=== PATIENT | male | born 1955 | race Caucasian/White ===

== ENCOUNTER 2017-08-17 13:58 | Emergency (ER) | payer BC ==
[~2017-08-17] VITALS: Ht 177.8 cm; Wt 70.3 kg
[~2017-08-17 13:58] MED LIST: ACAM333T6 PO; AMLO-543 PO; BACL-1 PO; BENA20TA62 PO; BUTA1CAP6 PO; CLIN-75 PO; CYC10 PO; CYCL-332 PO; CYCL10TA29 PO; DIAZ-308 PO; DICL1TAB PO; DOCU-416 PO; HYDR-2966 PO; HYDR-318 PO; HYDR12.558 PO; IBU600 PO; IBUP1TAB90 PO; LIS10 PO; LOR5/325 PO; LORA-733 PO; MECL12.5 PO; MECL25TA27 PO; MULT-772 PO; NALT50TA15 PO; NAPR1TAB6 PO; NAPR550T20 PO; ONDA4TAB PO; OXYC-373 PO; OXYC-717 PO; PAN40 PO; PENT1TAB PO; PHEN200T32 PO; PREG50CA48 PO; PROM-110 PO; PROP60CA22 PO; TADA20TA33 PO; THIA100T55 PO; TRAZ-156 PO; [UNRECOGNIZED DRUG - CODE] PO; [UNRECOGNIZED DRUG - OTHER]
[2017-08-17] MEDS ORDERED: THIAMINE HCL(*) 200 MG/2 ML IN 100 MG, FOLIC ACID(*) 50 MG/10 ML INJ 1 MG, MULTIVITAMIN... IV ONE (14:19)
--- NOTE | 2017-08-17 14:25 | ER Report ---
History and Physical Time Seen By MD: 14:05 Hx. of Stated Complaint: PATIENT REPORTS THAT HE IS HERE TO DETOX FROM ALCOHOL. PATIENTS SON REPORTS THAT HE WAS SOBER FOR 9 YEARS BUT STARTED DRINKING AROUND A YEAR AGO. HPI/ROS CHIEF COMPLAINT: Alcohol intoxication, wanting detox HISTORY OF PRESENT ILLNESS: Patient is a 62-year-old male accompanied by his son , who presents to ED with complaint of alcohol intoxication wanting detox. He states that he has been drinking daily for the past year. He states that he has been drinking about a gallon of whiskey a day. He states he has had 4 drinks of gin today with his last drink pain about 15 minutes ago. He states that prior to this one year of drinking he was sober for 9 years. Patient states that he did see his psychiatrist today and they advised him to come to the emergency room for detoxification. He states that he does want to stop drinking alcohol. His son is in support of this decision and is brought to the emergency room today. REVIEW OF SYSTEMS: Constitutional: No fever, no chills. Eyes: No discharge. ENT: No sore throat. Cardiovascular: No chest pain, no palpitations. Respiratory: No cough, no shortness of breath. Gastrointestinal: No abdominal pain, no vomiting. Genitourinary: No hematuria. Musculoskeletal: No back pain. Skin: No rashes. Neurological: No headache. Allergies: Coded Allergies: Penicillins (Verified Allergy, Severe, ANAPHYLAXIS, 10/24/15) Home Meds Active Scripts Amlodipine Bes/Olmesartan Med (LOU 5-20 MG TABLET) 1 Each Tablet, 1 EACH PO DAILY, #90 TAB Prov:LEO GOTTLIEB MD 06/17/17 Reported Medications Pantoprazole Sod (Protonix) 40 Mg Tabec, 40 MG PO DAILY 10/06/11 Discontinued Reported Medications Naproxen Sodium (NAPROXEN SODIUM) 550 Mg Tablet, 1 MG PO TID, TAB 10/02/16 Discontinued Scripts Tadalafil (CIALIS) 20 Mg Tablet, 20 MG PO QDAY, #6 TAB Prov:MAREK CHOUDHURY MD 04/09/17 Meclizine Hcl (MECLIZINE HCL) 25 Mg Tab.chew, 25 MG PO BID Y for vertigo, #30 TAB.CHEW 1 Refill Prov:LEO GOTTLIEB MD 10/02/16 Trazodone Hcl (TRAZODONE HCL) 50 Mg Tablet, 0.5-1 MG PO QHS Y for insomnia, #30 TAB 1 Refill Prov:LEO GOTTLIEB MD 10/02/16 Reviewed Nurses Notes: Yes Old Medical Records Reviewed: Yes Hx Smoking: Yes (1 PPD SINCE 1959) Smoking Status: Former Smoker, Heavy Tobacco Smoker Hx Substance Use Disorder: Yes (alcoholism, former cocaine use) Hx Alcohol Use: Yes Constitutional Vital Sign - Last 24 Hours 08/17/17 08/17/17 08/17/17 08/17/17 14:01 14:03 14:22 14:28 Temp 97.9 Pulse 84 84 Resp 20 B/P (MAP) 202/125 (150) 202/125 190/119 (142) Pulse Ox 93 91 O2 Delivery Room Air 08/17/17 08/17/17 08/17/17 08/17/17 14:30 14:40 14:43 14:50 Pulse 84 Resp 37 B/P (MAP) 163/119 (134) 175/108 (130) 167/91 (116) Pulse Ox 88 08/17/17 08/17/17 08/17/17 08/17/17 14:58 15:00 15:10 15:13 Pulse 80 82 Resp 31 42 B/P (MAP) 145/97 (113) 145/104 (118) 08/17/17 15:20 B/P (MAP) 139/92 (108) Physical Exam General Appearance: The patient is alert, has no immediate need for airway protection and no signs of toxicity. Patient appears to be in no acute distress. Eyes: Pupils equal and round no pallor or injection. ENT, Mouth: Mucous membranes are moist. Respiratory: There are no retractions, lungs are clear to auscultation. Cardiovascular: Regular rate and rhythm. Gastrointestinal: Abdomen is soft and non tender, no masses, bowel sounds normal. Neurological: Cranial nerves II through XII intact. Skin: Warm and dry, no rashes. Musculoskeletal: Neck is supple non tender. Extremities are nontender, nonswollen and have full range of motion. Medical Decision Making Data Points Result Diagram: 08/17/17 1430 08/17/17 1430 Laboratory Hematology Test 08/17/17 14:30 08/17/17 14:50 Red Blood Count 4.80 M/uL (4.00-5.60) Mean Corpuscular Volume 103.0 fL (80.0-96.0) Mean Corpuscular Hemoglobin 35.9 pg (26.0-33.0) Mean Corpuscular Hemoglobin Concent 34.9 g/dL (32.0-36.0) Red Cell Distribution Width 15.3 % (11.5-14.5) Mean Platelet Volume 7.8 fL (7.2-11.1) Neutrophils (%) (Auto) 60.2 % (39.4-72.5) Lymphocytes (%) (Auto) 29.6 % (17.6-49.6) Monocytes (%) (Auto) 8.9 % (4.1-12.4) Eosinophils (%) (Auto) 0.6 % (0.4-6.7) Basophils (%) (Auto) 0.7 % (0.3-1.4) Nucleated RBC Relative Count (auto) 0.1 /100WBC Neutrophils # (Auto) 3.8 K/uL (2.0-7.4) Lymphocytes # (Auto) 1.9 K/uL (1.3-3.6) Monocytes # (Auto) 0.6 K/uL (0.3-1.0) Eosinophils # (Auto) 0.0 K/uL (0.0-0.5) Basophils # (Auto) 0.0 K/uL (0.0-0.1) Nucleated RBC Absolute Count (auto) 0.01 K/uL Peripheral Blood Smear No Y/N Sodium Level 143 mmol/L (137-145) Potassium Level 3.4 mmol/L (3.5-5.0) Chloride Level 102 mmol/L (98-107) Carbon Dioxide Level 24 mmol/L (22-30) Blood Urea Nitrogen 7 mg/dl (9-21) Creatinine 0.80 mg/dl (0.66-1.25) Glomerular Filtration Rate Calc > 60.0 Random Glucose 111 mg/dl (75-110) Calcium Level 9.1 mg/dl (8.4-10.2) Magnesium Level 2.0 mg/dl (1.7-2.2) Total Bilirubin 0.7 mg/dl (0.2-1.3) Aspartate Amino Transf (AST/SGOT) 116 U/L (0-35) Alanine Aminotransferase (ALT/SGPT) 96 U/L (0-56) Alkaline Phosphatase 257 U/L (0-126) Total Protein 7.8 gm/dl (6.3-8.2) Albumin 4.3 g/dl (3.5-5.0) Salicylates Level < 10 mg/L Salicylate Last Dose Date unknown Acetaminophen Level < 10 ug/ml Serum Alcohol 349 mg/dl Urine Color Straw Urine Clarity Clear Urine pH 6.0 pH (4.8-9.5) Urine Specific [place] 1.003 Urine Protein Negative mg/dL (NEGATIVE) Urine Glucose (UA) Negative mg/dL (NEGATIVE) Urine Ketones Negative mg/dL (NEGATIVE) Urine Blood Small (NEGATIVE) Urine Nitrite Negative (NEGATIVE) Urine Bilirubin Negative (NEGATIVE) Urine Urobilinogen Negative mg/dL (0.2-1.9) Urine Leukocyte Esterase Negative (NEGATIVE) Urine RBC None /HPF (0-2/HPF) Urine WBC <1 /HPF (0-5/HPF) Urine Squamous Epithelial Cells None /LPF (</=FEW) Urine Bacteria Negative /HPF (NONE-FEW) Urine Mucus None /HPF (NONE-FEW) Urine Opiates Screen Negative Urine Barbiturates Screen Negative Ur Tricyclic Antidepressants Screen Negative Urine Phencyclidine Screen Negative Urine Amphetamines Screen Negative Urine Benzodiazepines Screen Negative Urine Cocaine Screen Negative Urine Cannabinoids Screen Positive Chemistry Test 08/17/17 14:30 08/17/17 14:50 White Blood Count 6.4 k/uL (4.5-11.0) Red Blood Count 4.80 M/uL (4.00-5.60) Hemoglobin 17.3 g/dL (14.0-18.0) Hematocrit 49.4 % (42.0-52.0) Mean Corpuscular Volume 103.0 fL (80.0-96.0) Mean Corpuscular Hemoglobin 35.9 pg (26.0-33.0) Mean Corpuscular Hemoglobin Concent 34.9 g/dL (32.0-36.0) Red Cell Distribution Width 15.3 % (11.5-14.5) Platelet Count 230 K/uL (150-450) Mean Platelet Volume 7.8 fL (7.2-11.1) Neutrophils (%) (Auto) 60.2 % (39.4-72.5) Lymphocytes (%) (Auto) 29.6 % (17.6-49.6) Monocytes (%) (Auto) 8.9 % (4.1-12.4) Eosinophils (%) (Auto) 0.6 % (0.4-6.7) Basophils (%) (Auto) 0.7 % (0.3-1.4) Nucleated RBC Relative Count (auto) 0.1 /100WBC Neutrophils # (Auto) 3.8 K/uL (2.0-7.4) Lymphocytes # (Auto) 1.9 K/uL (1.3-3.6) Monocytes # (Auto) 0.6 K/uL (0.3-1.0) Eosinophils # (Auto) 0.0 K/uL (0.0-0.5) Basophils # (Auto) 0.0 K/uL (0.0-0.1) Nucleated RBC Absolute Count (auto) 0.01 K/uL Peripheral Blood Smear No Y/N Glomerular Filtration Rate Calc > 60.0 Calcium Level 9.1 mg/dl (8.4-10.2) Magnesium Level 2.0 mg/dl (1.7-2.2) Total Bilirubin 0.7 mg/dl (0.2-1.3) Aspartate Amino Transf (AST/SGOT) 116 U/L (0-35) Alanine Aminotransferase (ALT/SGPT) 96 U/L (0-56) Alkaline Phosphatase 257 U/L (0-126) Total Protein 7.8 gm/dl (6.3-8.2) Albumin 4.3 g/dl (3.5-5.0) Salicylates Level < 10 mg/L Salicylate Last Dose Date unknown Acetaminophen Level < 10 ug/ml Serum Alcohol 349 mg/dl Urine Color Straw Urine Clarity Clear Urine pH 6.0 pH (4.8-9.5) Urine Specific [place] 1.003 Urine Protein Negative mg/dL (NEGATIVE) Urine Glucose (UA) Negative mg/dL (NEGATIVE) Urine Ketones Negative mg/dL (NEGATIVE) Urine Blood Small (NEGATIVE) Urine Nitrite Negative (NEGATIVE) Urine Bilirubin Negative (NEGATIVE) Urine Urobilinogen Negative mg/dL (0.2-1.9) Urine Leukocyte Esterase Negative (NEGATIVE) Urine RBC None /HPF (0-2/HPF) Urine WBC <1 /HPF (0-5/HPF) Urine Squamous Epithelial Cells None /LPF (</=FEW) Urine Bacteria Negative /HPF (NONE-FEW) Urine Mucus None /HPF (NONE-FEW) Urine Opiates Screen Negative Urine Barbiturates Screen Negative Ur Tricyclic Antidepressants Screen Negative Urine Phencyclidine Screen Negative Urine Amphetamines Screen Negative Urine Benzodiazepines Screen Negative Urine Cocaine Screen Negative Urine Cannabinoids Screen Positive Toxicology Test 08/17/17 14:30 08/17/17 14:50 Salicylates Level < 10 mg/L Salicylate Last Dose Date unknown Acetaminophen Level < 10 ug/ml Serum Alcohol 349 mg/dl Urine Opiates Screen Negative Urine Barbiturates Screen Negative Ur Tricyclic Antidepressants Screen Negative Urine Phencyclidine Screen Negative Urine Amphetamines Screen Negative Urine Benzodiazepines Screen Negative Urine Cocaine Screen Negative Urine Cannabinoids Screen Positive Urinalysis Test 08/17/17 14:50 Urine Color Straw Urine Clarity Clear Urine pH 6.0 pH (4.8-9.5) Urine Specific [place] 1.003 Urine Protein Negative mg/dL (NEGATIVE) Urine Glucose (UA) Negative mg/dL (NEGATIVE) Urine Ketones Negative mg/dL (NEGATIVE) Urine Blood Small (NEGATIVE) Urine Nitrite Negative (NEGATIVE) Urine Bilirubin Negative (NEGATIVE) Urine Urobilinogen Negative mg/dL (0.2-1.9) Urine Leukocyte Esterase Negative (NEGATIVE) Urine RBC None /HPF (0-2/HPF) Urine WBC <1 /HPF (0-5/HPF) Urine Squamous Epithelial Cells None /LPF (</=FEW) Urine Bacteria Negative /HPF (NONE-FEW) Urine Mucus None /HPF (NONE-FEW) EKG/Imaging EKG Interpretation 12 lead EKG: Rhythm: Sinus rhythm, rate 82 bpm Equality: normal QRS: normal ST segments: No acute ST changes identified. ED Course/Re-evaluation Clinical Indication for ER IV: Hydration ED Course Will obtain labs from patient. Will start him on 1 L banana bag. 08/17/2017 3:29:33 pm - Discussed all labs with patient. Discussed patient with Dr. Azul, psychiatry, who will accept patient under his care for alcohol detoxification. Decision to Disposition Date: Aug 17, 2017 Decision to Disposition Time: 15:30 Depart Departure Latest Vital Signs Vital Signs Date Time Temp Pulse Resp B/P (MAP) Pulse Ox O2 Delivery O2 Flow Rate FiO2 08/17/17 15:20 139/92 (108) 08/17/17 15:13 82 42 08/17/17 14:43 88 08/17/17 14:03 97.9 Room Air Impression: Primary Impression: Alcohol intoxication Condition: Improved Disposition: XFER TO [facility] Referrals: LEO GOTTLIEB MD (PCP) MD Consult Note: Dr. Azul, Psychiatry Problem Qualifiers Primary Impression: Alcohol intoxication Complication of substance-induced condition: uncomplicated Qualified Codes: F10.920 - Alcohol use, unspecified with intoxication, uncomplicated ALEXIS MACIEL PA-C Aug 17, 2017 14:25
[2017-08-17 14:40] LABS: PLATELET COUNT, AUTOMATED 230 K/uL (150-450)
[2017-08-17] MEDS ORDERED: NICOTINE 14 MG/24 HR PATCH TD SCH (14:45)
--- NOTE | 2017-08-17 14:47 | EKG ---
FACILITY: [facility] PATIENT NAME: DARREN BRAVO : [id number] MR: [id number] V: [id number] EXAM DATE: ORDERING PHYSICIAN: ALEXIS MACIEL TECHNOLOGIST: JUAN ANTONIO Fischer Reason : Blood Pressure : / mmHG Vent. Rate : 082 BPM Atrial Rate : 082 BPM P-R Int : 138 ms QRS Dur : 104 ms QT Int : 404 ms P-R-T Axes : 068 065 071 degrees QTc Int : 472 ms Normal sinus rhythm Normal ECG When compared with ECG of 26-OCT-2015 12:14, QT has lengthened Confirmed by SIVAN QUINTERO ([id number]) on 08/17/2017 3:52:49 PM Referred By: MALACHI Confirmed By:SIVAN QUINTERO
[2017-08-17 15:40] VITALS: BP 136/83
[2017-08-17] MEDS ORDERED: ACET-1966 PO (15:51)
== END 2017-08-17 16:06 ==
LOC: ER 14:07
DX: F10.920 Alcohol use, unspecified with intoxication, uncomplicated (principal); Z87.891 Personal history of nicotine dependence
CPT/HCPCS: 80305; 80320; 80329; 81001; 83735; 84443; 85025; 93005; 96365; 99285; J3411; J3475; J7030; 82040; 82247; 82310; 82374; 82435; 82565; 82947; 84075; 84132; 84155; 84295; 84450; 84460; 84520

== ENCOUNTER 2017-08-17 15:41 | Inpatient (IN) | payer BC ==
[~2017-08-17] VITALS: Ht 177.8 cm; Wt 81.6 kg
[2017-08-17] MEDS ORDERED: ACET-1966 PO (15:51)
[2017-08-17] MEDS ORDERED: MAG HYD/AL HYD/SIMETH 30ML UDC PO PRN (15:55)
[2017-08-17 16:46] VITALS: BP 164/94
--- NOTE | 2017-08-17 17:55 | RADIOLOGY IMAGING REPORT ---
FACILITY: [facility] PATIENT NAME: Jin Caldwell : 1955 MR: [id number] V: [id number] EXAM DATE: ORDERING PHYSICIAN: MARVA NICHOLS TECHNOLOGIST: Location: [facility] [place] Patient: Jin Caldwell : 1955 Visit/Account:[id number] Date of Sevice: 08/17/2017 Exam type: CHEST SINGLE AP History: ILLNESS,, shortness of breath Comparison: October 26 2015. Findings: The lungs are free of acute effusions, infiltrates or edema. The cardiac silhouette is normal in siz e. The trachea is in midline. IMPRESSION: 1. No acute cardiopulmonary process is seen Report Dictated By: Catrachita Coley MD at 08/17/2017 5:49 PM Report E-Signed By: Catrachita Coley MD at 08/17/2017 5:51 PM WSN:[id number]
[2017-08-17 18:21] VITALS: BP 152/82
[2017-08-17] MEDS: DIAZEPAM 10 MG TAB PO PRN ×4 (18:40→23:42)
[2017-08-17 23:35] VITALS: BP 160/100
[2017-08-18] MEDS: DIAZEPAM 10 MG TAB PO PRN ×7 (00:40→21:11)
[2017-08-18 05:00] VITALS: BP 158/98
[2017-08-18] MEDS ORDERED: LOPERAMIDE HCL 2 MG CAP PO PRN (06:35)
[2017-08-18] MEDS: FOLIC ACID 1 MG TAB PO SCH (08:13)
[2017-08-18] MEDS: MULTIVITAMINS TAB PO SCH (08:13)
[2017-08-18] MEDS: THIAMINE HCL 100 MG TAB PO SCH (08:13)
[2017-08-18 09:00] VITALS: BP 136/94
[2017-08-18] MEDS: NICOTINE 21 MG/24 HR PATCH TD SCH (10:32)
[2017-08-18 13:00] VITALS: BP 170/104
[2017-08-18 16:09] VITALS: BP 150/94
[2017-08-18 19:22] VITALS: BP 170/110
[2017-08-18 21:07] VITALS: BP_SYST 172
[2017-08-19 01:00] VITALS: BP 181/117
[2017-08-19] MEDS: DIAZEPAM 10 MG TAB PO PRN ×5 (01:04→07:45)
[2017-08-19 03:30] VITALS: BP 164/118
[2017-08-19 07:35] VITALS: BP 161/101
[2017-08-19] MEDS ORDERED: CYCL10TA29 PO (08:13)
[2017-08-19] MEDS: FOLIC ACID 1 MG TAB PO SCH (08:25)
[2017-08-19] MEDS: THIAMINE HCL 100 MG TAB PO SCH (08:26)
[2017-08-19] MEDS: PANTOPRAZOLE SOD 40 MG TABEC PO SCH (08:26)
[2017-08-19] MEDS: MULTIVITAMINS TAB PO SCH (08:26)
[2017-08-19] MEDS: NICOTINE 21 MG/24 HR PATCH TD SCH (08:27)
[2017-08-19 08:35] VITALS: BP 172/116
[2017-08-19] MEDS ORDERED: amLODIPine BESYL(*) 5 MG TAB PO SCH (09:00)
--- NOTE | 2017-08-19 11:55 | BHS Progress Note ---
[facility] - Subjective Progress Notes Subjective Patient's alcohol withdrawal nearing completion. Patient is upset with today as is indicating she does not want him at home anymore. Patient considered leaving against medical advice, but eventually deciding to stay until tomorrow afternoon, when alcohol withdrawal will likely be considered complete. Patient denies any other concerns. Will start antihypertensive, and start trazodone this PM. Suicidal Ideation: None Homicidal Ideation: None [facility] - Objective Physical Exam Vital Signs Vital Signs Date Time Temp Pulse Resp B/P (MAP) Pulse Ox O2 Delivery O2 Flow Rate FiO2 08/19/17 08:35 97.9 73 172/116 (134) 90 Room Air 08/19/17 08:35 16 08/19/17 03:30 2.0 Hematology Test 08/17/17 17:46 08/18/17 00:00 Serum Alcohol 248 mg/dl Group A Streptococcus Screen Negative (NEGATIVE) Rapid Plasma Reagin Nonreactive (NONREACTIVE) Hepatitis A IgM Antibody Negative (Negative) Hepatitis B Surface Antigen Negative (Negative) Hepatitis B Core IgM Antibody Negative (Negative) Hepatitis C Antibody 0.05 IV Hepatitis C Interpretation Negative (Negative) Hepatitis Interpretation See note HIV (1&2) Antibody Negative (NEGATIVE) Chemistry Test 08/17/17 17:46 08/18/17 00:00 Serum Alcohol 248 mg/dl Group A Streptococcus Screen Negative (NEGATIVE) Rapid Plasma Reagin Nonreactive (NONREACTIVE) Hepatitis A IgM Antibody Negative (Negative) Hepatitis B Surface Antigen Negative (Negative) Hepatitis B Core IgM Antibody Negative (Negative) Hepatitis C Antibody 0.05 IV Hepatitis C Interpretation Negative (Negative) Hepatitis Interpretation See note HIV (1&2) Antibody Negative (NEGATIVE) Toxicology Test 08/17/17 17:46 Serum Alcohol 248 mg/dl Muscle Strength and Tone: WNL Gait and Station: Steady [facility] Medications Reviewed: Side Effects, Benefits of Medication, Risks Allergies Reviewed: Yes Mental Status Exam General Appearance: Casual, Well Groomed, Good Eye Contact, Cooperative, Polite , Good Interaction, No Psychomotor Agitation, No Psychomotor Retardation, No Bizarre Mannerisms, No Tics Speech: Clear, Spontaneous, Normal Rate, Normal Rhythm, Normal Volume, Normal Tone Mood: Dysthmic/Depressed (irritated over situation with his ) Affect: Calm, Neutral Thought Process: Organized, Logical, Goal Directed, No Loose Associations, No Flight of Ideas Thought Content: No Suicidal Ideation, No Homicidal Ideation, No Delusions, No Auditory Halllucinations, No Visual Hallucinations, No Thought Broadcasting, No Ideas of Reference, No Obsessions, No Compulsions Sensorium: Clear Cognition: Alert & Oriented-Person, Alert & Oriented-Place, Alert & Oriented- Time, [id number]-[id number]-[id number] Memory: Immediate, Recent, Remote Intelligence: Average Insight Judgment: Fair (improving in absence of alcohol. ) [facility] Assessment and Plan [id number] Encounter Date: Aug 19, 2017 [id number] Encounter Time: 09:00 [facility] Plan: Necessary Precautions, Individual/Group Therapy, Admin/Titrate Meds, Educate Patient Tobacco Medications: Started Problems: (1) Alcohol withdrawal Status: Acute (2) Partner relational problem Status: Chronic (3) Alcohol use disorder, severe, in controlled environment Status: Chronic Condition 1. continue treatment for alcohol withdrawal. 2. start trazodone. 3. start scot Problem Qualifiers (1) Alcohol withdrawal: Complication of substance-induced condition: uncomplicated Qualified Codes: F10.230 - Alcohol dependence with withdrawal, uncomplicated MARVA NICHOLS MD Aug 19, 2017 11:55
[2017-08-19 12:00] VITALS: BP 172/108
--- NOTE | 2017-08-19 17:46 | HISTORY AND PHYSICAL ---
DATE OF ADMISSION: August 17, 2017 PRESENTING PROBLEM/CHIEF COMPLAINT The patient presenting voluntarily for alcohol withdrawal. HISTORY OF PRESENT ILLNESS This patient was seen on August 18, 2017, at approximately 10:00 a.m. This is a 62-year-old male who reports his alcoholism is "getting out of hand." The patient has notably tried to taper back a couple weeks ago. This resulted in the start of significant withdrawal. The patient is unable to do this at home. The patient is seeing an outpatient provider, believed to be for the first time in the [place] area, and the outpatient provider encouraged the patient to come to the Emergency Room for help with alcohol withdrawal. The patient was admitted without incident. When asked about specific stressors in his life in addition to the ongoing addiction to alcohol, the patient reports " a cross addiction" to illicit sexual relations outside of his marriage. When asked about depressive symptoms, the patient acknowledges much guilt and becomes tearful when talking about sexual relations outside of his relationship with his of 38 years. The patient denies any other significant depressive symptoms. The patient denies any other symptoms of psychiatric concern. MENTAL HEALTH HISTORY The patient was last here in the hospital in [facility] in 2007 under similar circumstances. The patient reports through the help of AA where he himself became a sponsor, he had a period of sobriety of almost nine years. The patient has been at [facility] in the past for outpatient followup, believed to be last in [facility] about two years ago. The patient does report a suicide attempt around age 15, but denies any suicide ideation now. FAMILY PSYCHIATRIC HISTORY The patient reports his father suffered from alcoholism as well as a brother and a sister. The patient reports his sister into drug use as well. No suicides in the family history. PAST MEDICAL HISTORY 1. Multiple C-spine surgeries. The patient reports some resultant and ongoing neck pain as well. 2. The patient has a hiatal hernia. 3. He suffers from GERD. 4. The patient has had vertigo in the past as well. 5. Hypertension. ALLERGIES He has an allergy to PENICILLIN. SOCIAL HISTORY The patient was born in [place], raised here and in [facility]. His parents were at the time of his . Both are now. The patient has one brother who is younger and one older sister. The patient reports his father and mother when he was an adolescent. He did not graduate high school, but did obtain a GED. The patient has had some college work as well in the past. He is times two. His first marriage was very short in duration. His second marriage, he has now been for 38 years. The patient has one stepson, age 48. The patient lives with his currently. He reports that she may have caught him with relationships outside the marriage, and they are going through some rough times. The patient has a legal history significant for up to seven DUIs in his life. The patient received a felony sentence which had been rescinded for disabling a locomotive in the past as well. The patient is not under an legal stressors currently. The patient works in the summer driving heavy equipment. In the wintertime, he is laid off, and this allows him more time to abuse substances. SUBSTANCE ABUSE HISTORY The patient reports alcohol use is by far his biggest concern. The patient does smoke marijuana as well, and he smokes up to one and a half packs of cigarettes a day. The patient has used cocaine in the past. PHYSICAL EXAMINATION Please see emergency room note. Notable for intoxicated 62-year-old male with significant hypertension at time of admission. Vital signs at the time of admission showed temperature 97.9, pulse 84, respiratory rate 20, blood pressure 202/125, and pulse oximetry 93% on room air. LABORATORY DATA 1. CBC notable for MCV elevated at 103.0, MCH 35.9, platelet count 230. 2. Chemistry panel: Potassium 3.4 and low. AST 116 and elevated. ALT 96 and elevated. Alkaline phosphatase 257 and elevated. Normal total bilirubin at 0.7. 3. TSH of 0.62. 4. Urinalysis did show small urine blood present, otherwise unremarkable. 5. Toxicology screen positive for cannabis with a blood serum alcohol level of 349. Negative for other substances of abuse. MENTAL STATUS EXAMINATION GENERAL APPEARANCE, BEHAVIOR, AND ATTITUDE: This is a polite, 62-year-old male being currently treated for alcohol withdrawal with the use of diazepam. During the initial interview, the patient is making good eye contact. The patient is showing some psychomotor retardation secondary to treatment for alcohol withdrawal. The patient is having brief periods of tearfulness when talking about relationships and guilt concerning his of 38 years. No bizarre mannerisms or tics. SPEECH: Slowed at times, but largely considered baseline. MOOD: Described as frustrated with alcoholism. AFFECT: Slightly constricted and mood congruent. THOUGHT PROCESSES: Goal directed, logical. No loose associations or flight of ideas. THOUGHT CONTENT: Free of auditory or visual hallucinations, ideas of reference , thought broadcasting, delusions, obsessions, or compulsions. The patient is adamantly denying suicidal or homicidal ideations. SENSORIUM: Clear. COGNITION: Alert and oriented to person, place, time, and situation. MEMORY: Immediate, recent, and remote estimated intact. INTELLIGENCE: Average based on interview. INSIGHT AND JUDGMENT: Considered grossly intact in the absence of substance use. ASSESSMENT This is a polite 62-year-old male currently suffering from significant alcohol use disorder and ongoing partner relational problem. The patient reports that his also suffers from alcoholism. The patient is using cannabis as well. We will continue to treat withdrawal to completion and evaluate and encourage meetings between him and his prior to discharge. DIAGNOSES 1. Alcohol intoxication. 2. Alcohol use disorder, severe. 3. Alcohol withdrawal. 4. Cannabis use disorder. 5. Partner relational problems. 6. Stressors related to illness. PLAN 1. Admit to the unit. 2. Necessary precautions will be implemented. 3. The patient will participate in individual and group therapy. 4. Alcohol withdrawal to be treated with diazepam per [facility] protocol. 5. Collateral information to be as necessary. 6. Estimated length of stay three to five days. MTDD
[2017-08-19] MEDS ORDERED: MENTHOL/METHYL SALI CREAM 57 GM 57 GM TUBE TP SCH (19:30)
[2017-08-19] MEDS: ASPIRIN 81 MG ENTERIC COATED PO SCH (20:03)
[2017-08-19 20:45] VITALS: BP 170/102
[2017-08-19] MEDS ORDERED: traZODone HCL 50 MG TAB PO SCH (21:00)
[2017-08-20 01:02] VITALS: BP 172/115
[2017-08-20] MEDS ORDERED: IBUPROFEN 200 MG TAB PO PRN (01:10)
[2017-08-20 08:55] VITALS: BP 152/100
[2017-08-20] MEDS: PANTOPRAZOLE SOD 40 MG TABEC PO SCH (08:55)
[2017-08-20] MEDS: FOLIC ACID 1 MG TAB PO SCH (08:55)
[2017-08-20] MEDS: MULTIVITAMINS TAB PO SCH (08:55)
[2017-08-20] MEDS: ASPIRIN 81 MG ENTERIC COATED PO SCH (08:55)
[2017-08-20] MEDS: THIAMINE HCL 100 MG TAB PO SCH (08:55)
[2017-08-20] MEDS: NICOTINE 21 MG/24 HR PATCH TD SCH (08:59)
[2017-08-20] MEDS ORDERED: AMLODIPINE BES PO SCH (09:00)
[2017-08-20] MEDS ORDERED: OLMESARTAN MED PO SCH (09:00)
[2017-08-20] MEDS ORDERED: MENT113G6 TP (09:16)
[2017-08-20] MEDS ORDERED: TRAZ-156 PO (09:18)
[2017-08-20] MEDS ORDERED: ASPI-1471 PO (09:19)
[2017-08-20] MEDS ORDERED: FOLI-68 PO (09:19)
[2017-08-20] MEDS ORDERED: NICO-218 TD (09:20)
[2017-08-20] MEDS ORDERED: MULT-1379 PO (09:21)
[2017-08-20] MEDS ORDERED: THIA100T62 PO (09:22)
[2017-08-20] MEDS ORDERED: IBUP400T13 PO (09:23)
--- NOTE | 2017-08-24 11:48 | SCHAAF DISCHARGE ---
DATE OF ADMISSION: August 17, 2017 DATE OF DISCHARGE: August 20, 2017 Patient was seen for this discharge summary on August 20, 2017 at approximately 0900 a.m. ATTENDING PHYSICIAN Akin Azul MD FINAL DIAGNOSES PER DSM-V Cannabis use disorder. Alcohol use disorder, severe. Alcohol withdrawal, considered complete. Partner relational problems. Stressors of illness. REASON FOR ADMISSION This is a 62-year-old male who remained pleasant and cooperative throughout his stay. Patient was admitted voluntarily for alcohol dependence and subsequent alcohol detoxification. Patient was treated with diazepam per [facility] protocol. Alcohol withdrawal was treated to completion. Patient met with his present on the unit on various occasions concerning ongoing partner relational problem around apparent extramarital affairs. Patient's of 38 years indicated no fear, or reservations, of patient returning home, and was aware of his discharge. Patient and were encouraged to attend outpatient marital counseling upon discharge. Patient's mood continued to improve. Patient was started on trazodone as well. He was to stop all Flexeril at home, and patient discharged to home. PHYSICAL EXAMINATION Please see emergency room note. Notable for 62-year-old male, acute intoxication , sent over from first visit with primary care office. At time of admission, vital signs indicated temperature 97.9, pulse 84, respiratory rate 20, blood pressure 202/125, pulse oximetry 93% on room air. At time of discharge, vital signs indicated temperature 98.3, pulse 88, respiratory rate 16, blood pressure 152/100, pulse oximetry 91% on room air. LABORATORY DATA CBC upon admission notable for MCV elevated at 103, MCH 35.9, chemistry panel notable for AST elevated at 116, ALT 96 with an alkaline phosphatase 257, potassium 3.4, TSH 0.62 in normal range. Urinalysis did indicate small urine blood present, otherwise unremarkable, and toxicology screen positive for cannabis and a serum alcohol level of 349 upon admission, negative for other substances of abuse. RPR was was found to be nonreactive. Hepatitis panel was negative overall, HIV negative, group A strep screen was negative as well. MENTAL STATUS EXAMINATION GENERAL APPEARANCE, BEHAVIOR AND ATTITUDE: This is a polite, cooperative 62- year-old male interacting well with this provider and other treatment team staff. Good eye contact. No bizarre mannerisms or tics. SPEECH: Within normal limits. Regular rate, rhythm, volume and tone. MOOD: Described as good. AFFECT: Full and bright. THOUGHT PROCESSES: Logical, goal-directed, no loose associations or flight of ideas. THOUGHT CONTENT: Free of auditory or visual hallucinations, ideas of reference , thought broadcastings, delusions, obsessions or compulsions. Negative for any suicidal or homicidal ideation. SENSORIUM: Clear. COGNITION: Alert and oriented to person, place, time and situation. MEMORY: Immediate, recent and remote estimated intact. INTELLIGENCE: Average, based on interview. INSIGHT AND JUDGMENT: Considered grossly intact in the absence of alcohol use and in the absence of cannabis use and Flexeril. RESULTS OF TESTING Imaging: None. Laboratory data: See above. Psychological testing: Not done. CONSULTATIONS None. TREATMENT Patient received medications, participated in individual and group therapy. HOSPITAL COURSE Patient's alcohol withdrawal was treated to completion with diazepam per [facility] protocol. It was noted to be moderate to severe in nature. Patient improved throughout his stay, did take an active role in his discharge planning. CONDITION OF PATIENT ON DISCHARGE Stable. Considered a minimal risk to himself or others, appropriate for outpatient care. DISPOSITION The patient was discharged to home. He would follow up with AA. Couples therapy was recommended for he and his . Patient would follow up with all other outpatient providers as well, including a repeat CBC, CMP and UA for small urine blood in 1 month with primary care provider and further treatment of hypertension. Patient agreed to stop all alcohol and all illicit substances , was prescribed trazodone. MEDICATIONS 1. At time of discharge, patient was Sheila 5/20 orally daily. 2. Aspirin 81 mg daily. 3. Folic acid 1 mg daily. 4. Ibuprofen 6 hours as needed for pain. 5. [place] as needed. 6. Multivitamin with minerals daily. 7. Patient encouraged to stop smoking and continue nicotine replacement over the counter. 8. Protonix 40 mg daily. 9. Thiamine 100 mg daily. 10. Trazodone 150 mg at bedtime. DISCHARGE INSTRUCTIONS Patient was encouraged to stop cyclobenzaprine at home. Crisis line was given should symptoms return. Risks, benefits and alternatives of above discharge plan were discussed. Informed consent was given to proceed with the above discharge plan by this competent patient. Patient's aware of patient's discharge as well. [facility]
== END 2017-08-20 15:22 | disposition home or self-care (01) | DRG 897 ==
LOC: BHS 15:41
PROVIDERS: ADMIT Psychiatry & Neurology Psychiatry; ATTEND Psychiatry & Neurology Psychiatry
DX: F10.230 Alcohol dependence with withdrawal, uncomplicated (principal); F12.90 Cannabis use, unspecified, uncomplicated; K21.9 Gastro-esophageal reflux disease without esophagitis; F17.210 Nicotine dependence, cigarettes, uncomplicated; F14.11 Cocaine abuse, in remission; I10 Essential (primary) hypertension; Y90.8 Blood alcohol level of 240 mg/100 ml or more; Z63.0 Problems in relationship with spouse or partner; Z91.5 Personal history of self-harm; Z81.1 Family history of alcohol abuse and dependence; Z81.3 Family history of other psychoactive substance abuse and dependence; Z88.0 Allergy status to penicillin
CPT/HCPCS: 36415; 71045; 80074; 80320; 86592; 86703; 87081; 87880; 90853

== ENCOUNTER → 2017-09-30 | Outpatient (CLI) | payer BC ==
[~2017-09-30] MED LIST changes: +ACET-1966 PO; +ASPI-1471 PO; +ATOR40TA24 PO; +FOLI-68 PO; +IBUP400T13 PO; +MENT113G6 TP; +MULT-1379 PO; +NICO-218 TD; +PANT40TA65 PO; +PROP120C31 PO; +SERT-181 PO; +THIA100T62 PO; +TRAZ150T8 PO; +ZOLP-358 PO
--- NOTE | 2017-09-30 15:29 | RADIOLOGY IMAGING REPORT ---
FACILITY: [facility] PATIENT NAME: Jin Caldwell : 1955 MR: [id number] V: [id number] EXAM DATE: ORDERING PHYSICIAN: CAMERON ESPINOZA TECHNOLOGIST: [place] [facility] [place] Jin Caldwell : 1955 Visit/Account:[id number] Date of Sevice: 09/30/2017 CHEST W/O CONTRAST HISTORY: Follow-up pulmonary nodule TECHNIQUE: CT chest without intravenous contrast. One of the following dose optimization techniques was utilized in the performance of this exam: Autom ated exposure control; adjustment of the mA and/or kV according to the patient's size; or use of an i terative reconstruction technique. Specific details can be referenced in the facility's radiology C T exam operational policy. CONTRAST: None. COMPARISON: CT dated November 20, 2015. FINDINGS: Heart/vessels: Ectasia of the ascending aorta measuring up to 3.7 cm. Mild calcifications within th e coronary arteries. Otherwise negative. Mediastinum: Negative. Lymph nodes: Negative. Lungs/pleura: Background of mild paraseptal emphysematous emphysema. Mild pleural-parenchymal scarr ing within the lingula. There is mucous plugging within the medial left lower lobe (image 296 of ser ies 4), with mild surrounding inflammation and/or scarring, decreased since prior CT.. Lobulated nod ule within the left lower lobe measuring 7 x 5 mm (image 267), which may represent focal mucous plugg ing. This nodularity is suboptimally visualized on prior exam secondary to volume averaging however is likely unchanged. Calcified granuloma within the right upper lobe. Visualized upper abdomen: Negative. Bones/soft tissues: Negative. IMPRESSION: 1. Previous identified ill-defined area of increased density within the medial left lower lobe corre sponds to an area of mucous plugging. There is persistent mucus plugging with slightly decreased ml rounding inflammation/scarring. 2. Previously identified vague posterior left lower lobe nodule is again identified, measuring 7 x 5 mm, previously measuring up to 5 mm however was incompletely visualized secondary to volume averagin g. This nodule is almost certainly unchanged. No definitive new or enlarging nodules are identified . Please see Fleischner guidelines below for potential continued follow-up. FLEISCHNER SOCIETY FOLLOW-UP GUIDELINES FOR NEWLY DETECTED INCIDENTAL NODULES IN PERSONS 35 YEARS OF AGE OR OLDER. *THESE RECOMMENDATIONS DO NOT APPLY TO LUNG CANCER SCREENING, PATIENTS WITH IMMUNOSUPPRESSION , OR PA TIENTS WITH KNOWN PRIMARY MALIGNANCY. SOLITARY SOLID NODULES If nodule size is 6-8 mm: Low risk patient - follow up CT at 6-12 months, then consider CT at 18-24 months if no change. High risk patient - follow up CT at 6-12 months, then CT at 18-24 months if no change. LOW RISK PATIENT: Minimal or absent history of tobacco use and of other known risk factors. HIGH RISK PATIENT: Tobacco use, family history of lung cancer, upper pulmonary lobe location of nodul e, presence of emphysema, pulmonary fibrosis, older age. Stacey H, Miguel Ángel DP, Codyo JM, et al. Guidelines for Management of Incidental Pulmonary Nodules Dete cted on CT Images: From the Fleischner Society 2017. Radiology. Report Dictated By: Flavio Morelos MD at 09/30/2017 2:58 PM Report E-Signed By: Flavio Morelos MD at 09/30/2017 3:24 PM WSN:[id number]
== END ==
LOC: CT 00:21
PROVIDERS: ATTEND Emergency Medicine
DX: I77.810 Thoracic aortic ectasia (principal); I25.10 Atherosclerotic heart disease of native coronary artery without angina pectoris; J43.9 Emphysema, unspecified; R91.1 Solitary pulmonary nodule
CPT/HCPCS: 71250

== ENCOUNTER → 2017-10-01 | Outpatient (CLI) | payer BC ==
[~2017-10-01] MED LIST changes: +UMEC1DIS INH
== END ==
LOC: RESP 00:50
PROVIDERS: ATTEND Emergency Medicine
DX: J98.4 Other disorders of lung (principal)
CPT/HCPCS: 94060; 94726; 94729

== ENCOUNTER 2017-10-19 14:23 | Emergency (ER) | payer BC ==
[~2017-10-19 14:23] MED LIST changes: +ALBU8.5H IH; +UMEC62.5 INH
--- NOTE | 2017-10-19 15:05 | ER Report ---
History and Physical Time Seen By MD: 14:49 Hx. of Stated Complaint: rt leg pain. feels hot, hurts to touch. has large veins on back of calf just below the knee HPI/ROS CHIEF COMPLAINT: Swelling to right lower extremity HISTORY OF PRESENT ILLNESS: 62-year-old male patient presents to emergency room with complaint of swelling to the right lower extremity. Patient states he has noticed some swelling over last several days behind the right knee. He states the pain has developed over the last couple days. He states last night the pain was significant and had a hard time sleeping. He states that he has tried compression stockings, he started elevating all with no improvement. He states he is concerned about having a blood clot in his legs. He denies having shortness of breath, chest pain, dizziness, nausea, vomiting or diarrhea. Patient has not taken any medication for this. REVIEW OF SYSTEMS: Respiratory: No cough, no dyspnea. Cardiovascular: No chest pain, no palpitations. Gastrointestinal: No vomiting, no abdominal pain. Musculoskeletal: No back pain. Allergies: Coded Allergies: Penicillins (Verified Allergy, Severe, ANAPHYLAXIS, 10/19/17) Home Meds Active Scripts Hydrocodone Bit/Acetaminophen (HYDROCODON-ACETAMINOPHEN 5-325) 1 Each Tablet, 1 EACH PO Q4-6H Y for PAIN, #12 TAB Prov:CHEYENNE KEITH 10/19/17 Trazodone Hcl (TRAZODONE HCL) 150 Mg Tablet, 1 TAB PO QHS, #10 TAB 0 Refills Prov:CAMERON ESPINOZA MD 10/13/17 Sertraline Hcl (SERTRALINE HCL) 100 Mg Tablet, 1 TAB PO QDAY, #10 TAB 0 Refills Prov:CAMERON ESPINOZA MD 10/13/17 Umeclidinium [place] (Incruse Ellipta) 62.5 Mcg Blst.w.dev, 1 INH INH DAILY, #1 INH 0 Refills Prov:CAMERON ESPINOZA MD 10/12/17 Albuterol Sulfate 90 Mcg/Act (PROAIR HFA 90 MCG/ACT) 8.5 Gm Hfa.aer.ad, 1-2 PUFF IH PRN, #1 INHALER 0 Refills Prov:CAMERON ESPINOZA MD 10/12/17 Atorvastatin Calcium (LIPITOR) 40 Mg Tablet, 1 TAB PO QDAY, #90 TAB 3 Refills Prov:CAMERON ESPINOZA MD 09/29/17 Amlodipine Bes/Olmesartan Med (LOU 5-20 MG TABLET) 1 Each Tablet, 1 EACH PO BID , #90 TAB 3 Refills Prov:CAMERON ESPINOZA MD 09/29/17 Pantoprazole Sodium (PANTOPRAZOLE SODIUM) 40 Mg Tablet.dr, 40 MG PO QDAY, #90 TAB.SR 3 Refills Prov:CAMERON ESPINOZA MD 09/29/17 Reported Medications Ibuprofen (IBUPROFEN) 400 Mg Tablet, 1 TAB PO Q6H Y for PAIN, TAB 08/20/17 Multivits,Th W-Fe,Other Min (THERA-M) 1 Each Tablet, 1 EACH PO QDAY 08/20/17 Discontinued Scripts Hydrochlorothiazide (HYDROCHLOROTHIAZIDE) 25 Mg Tablet, 1 TAB PO QDAY, #90 TAB 3 Refills Prov:CAMERON ESPINOZA MD 09/29/17 Propranolol Hcl (PROPRANOLOL HCL) 120 Mg Cap.sa.24h, 1 CAP PO QAM, #90 CAP 3 Refills Prov:CAMERON ESPINOZA MD 09/29/17 Umeclidinium Brm/Vilanterol Tr (Anoro Ellipta 62.5-25 Mcg INH) 1 Each Disk.w.dev , 1 INHALER INH DAILY, #1 MISC Prov:CAMERON ESPINOZA MD 10/06/17 Past Medical/Surgical History Patient has a past medical history of vertigo, migraines, hypertension, pneumonia, reflux, cholecystitis, hiatal hernia, hematuria, clavicle fracture, back pain, cocaine abuse, alcohol abuse, depression. Patient has surgical history of cholecystectomy, cervical spine surgery. Patient has family medical history of CAD, diabetes, psychiatric problems. Reviewed Nurses Notes: Yes Hx Smoking: Yes Smoking Status: Current: Every Day Smoker Exposure to Second Hand Smoke?: Yes Hx Substance Use Disorder: Yes (alcoholism, former cocaine use) Hx Alcohol Use: Yes Constitutional Vital Sign - Last 24 Hours 10/19/17 10/19/17 10/19/17 10/19/17 14:29 14:30 14:38 14:53 Temp 97.9 Pulse 69 64 63 Resp 16 B/P (MAP) 136/91 136/91 (106) Pulse Ox 92 92 91 O2 Delivery Room Air 10/19/17 10/19/17 10/19/1718 15:00 15:08 15:23 16:00 Pulse 65 61 B/P (MAP) 122/75 (91) ???/??? (1665) Pulse Ox 91 93 10/19/17 10/19/17 10/19/17 10/19/17 16:08 16:13 16:28 16:30 Pulse 58 61 68 B/P (MAP) 141/122 (128) Pulse Ox 91 Physical Exam General Appearance: The patient is alert, has no immediate need for airway protection and no current signs of toxicity. ENT: Tympanic membranes are pearly-antoine, auditory canals are patent, mucous membranes are moist. Respiratory: Chest is non tender, lungs are clear to auscultation. Cardiac: regular rate and rhythm Gastrointestinal: Abdomen is soft and non tender, no masses, bowel sounds normal. Musculoskeletal: Neck: Neck is supple and non tender. Extremities have full range of motion and are non tender. The right lower extremity is swollen, tender to touch. He does have palpable blood vessels [place], they're tender to touch. Skin: No rashes or lesions. DIFFERENTIAL DIAGNOSIS: After history and physical exam differential diagnosis was considered for superficial thrombophlebitis, DVT Medical Decision Making Data Points Result Diagram: 10/19/17 1454 10/19/17 1454 Laboratory Hematology Test 10/19/17 14:54 10/19/17 15:34 Red Blood Count 4.79 M/uL (4.00-5.60) Mean Corpuscular Volume 99.3 fL (80.0-96.0) Mean Corpuscular Hemoglobin 34.7 pg (26.0-33.0) Mean Corpuscular Hemoglobin Concent 35.0 g/dL (32.0-36.0) Red Cell Distribution Width 13.2 % (11.5-14.5) Mean Platelet Volume 8.8 fL (7.2-11.1) Neutrophils (%) (Auto) 66.8 % (39.4-72.5) Lymphocytes (%) (Auto) 23.9 % (17.6-49.6) Monocytes (%) (Auto) 6.7 % (4.1-12.4) Eosinophils (%) (Auto) 1.3 % (0.4-6.7) Basophils (%) (Auto) 1.3 % (0.3-1.4) Nucleated RBC Relative Count (auto) 0.0 /100WBC Neutrophils # (Auto) 6.5 K/uL (2.0-7.4) Lymphocytes # (Auto) 2.3 K/uL (1.3-3.6) Monocytes # (Auto) 0.6 K/uL (0.3-1.0) Eosinophils # (Auto) 0.1 K/uL (0.0-0.5) Basophils # (Auto) 0.1 K/uL (0.0-0.1) Nucleated RBC Absolute Count (auto) 0.00 K/uL Prothrombin Time 13.2 seconds (12.0-14.4) Prothromb Time International Ratio 1.00 Sodium Level 142 mmol/L (137-145) Potassium Level 3.6 mmol/L (3.5-5.0) Chloride Level 106 mmol/L (98-107) Carbon Dioxide Level 22 mmol/L (22-30) Blood Urea Nitrogen 12 mg/dl (9-21) Creatinine 1.00 mg/dl (0.66-1.25) Glomerular Filtration Rate Calc > 60.0 Random Glucose 88 mg/dl (75-110) Calcium Level 9.2 mg/dl (8.4-10.2) Total Bilirubin 0.5 mg/dl (0.2-1.3) Aspartate Amino Transf (AST/SGOT) 75 U/L (0-35) Alanine Aminotransferase (ALT/SGPT) 68 U/L (0-56) Alkaline Phosphatase 121 U/L (0-126) Troponin I < 0.012 ng/ml Total Protein 7.4 gm/dl (6.3-8.2) Albumin 4.2 g/dl (3.5-5.0) Urine Color Yellow Urine Clarity Clear Urine pH 5.0 pH (4.8-9.5) Urine Specific [place] 1.014 Urine Protein Negative mg/dL (NEGATIVE) Urine Glucose (UA) Negative mg/dL (NEGATIVE) Urine Ketones Negative mg/dL (NEGATIVE) Urine Blood Small (NEGATIVE) Urine Nitrite Negative (NEGATIVE) Urine Bilirubin Negative (NEGATIVE) Urine Urobilinogen Negative mg/dL (0.2-1.9) Urine Leukocyte Esterase Negative (NEGATIVE) Urine RBC 4 /HPF (0-2/HPF) Urine WBC 2 /HPF (0-5/HPF) Urine Squamous Epithelial Cells None /LPF (</=FEW) Urine Bacteria Negative /HPF (NONE-FEW) Urine Mucus Few /HPF (NONE-FEW) Chemistry Test 10/19/17 14:54 10/19/17 15:34 White Blood Count 9.7 k/uL (4.5-11.0) Red Blood Count 4.79 M/uL (4.00-5.60) Hemoglobin 16.6 g/dL (14.0-18.0) Hematocrit 47.6 % (42.0-52.0) Mean Corpuscular Volume 99.3 fL (80.0-96.0) Mean Corpuscular Hemoglobin 34.7 pg (26.0-33.0) Mean Corpuscular Hemoglobin Concent 35.0 g/dL (32.0-36.0) Red Cell Distribution Width 13.2 % (11.5-14.5) Platelet Count 254 K/uL (150-450) Mean Platelet Volume 8.8 fL (7.2-11.1) Neutrophils (%) (Auto) 66.8 % (39.4-72.5) Lymphocytes (%) (Auto) 23.9 % (17.6-49.6) Monocytes (%) (Auto) 6.7 % (4.1-12.4) Eosinophils (%) (Auto) 1.3 % (0.4-6.7) Basophils (%) (Auto) 1.3 % (0.3-1.4) Nucleated RBC Relative Count (auto) 0.0 /100WBC Neutrophils # (Auto) 6.5 K/uL (2.0-7.4) Lymphocytes # (Auto) 2.3 K/uL (1.3-3.6) Monocytes # (Auto) 0.6 K/uL (0.3-1.0) Eosinophils # (Auto) 0.1 K/uL (0.0-0.5) Basophils # (Auto) 0.1 K/uL (0.0-0.1) Nucleated RBC Absolute Count (auto) 0.00 K/uL Prothrombin Time 13.2 seconds (12.0-14.4) Prothromb Time International Ratio 1.00 Glomerular Filtration Rate Calc > 60.0 Calcium Level 9.2 mg/dl (8.4-10.2) Total Bilirubin 0.5 mg/dl (0.2-1.3) Aspartate Amino Transf (AST/SGOT) 75 U/L (0-35) Alanine Aminotransferase (ALT/SGPT) 68 U/L (0-56) Alkaline Phosphatase 121 U/L (0-126) Troponin I < 0.012 ng/ml Total Protein 7.4 gm/dl (6.3-8.2) Albumin 4.2 g/dl (3.5-5.0) Urine Color Yellow Urine Clarity Clear Urine pH 5.0 pH (4.8-9.5) Urine Specific [place] 1.014 Urine Protein Negative mg/dL (NEGATIVE) Urine Glucose (UA) Negative mg/dL (NEGATIVE) Urine Ketones Negative mg/dL (NEGATIVE) Urine Blood Small (NEGATIVE) Urine Nitrite Negative (NEGATIVE) Urine Bilirubin Negative (NEGATIVE) Urine Urobilinogen Negative mg/dL (0.2-1.9) Urine Leukocyte Esterase Negative (NEGATIVE) Urine RBC 4 /HPF (0-2/HPF) Urine WBC 2 /HPF (0-5/HPF) Urine Squamous Epithelial Cells None /LPF (</=FEW) Urine Bacteria Negative /HPF (NONE-FEW) Urine Mucus Few /HPF (NONE-FEW) Coagulation Test 10/19/17 14:54 Prothrombin Time 13.2 seconds Prothromb Time International Ratio 1.00 Urinalysis Test 10/19/17 15:34 Urine Color Yellow Urine Clarity Clear Urine pH 5.0 pH (4.8-9.5) Urine Specific [place] 1.014 Urine Protein Negative mg/dL (NEGATIVE) Urine Glucose (UA) Negative mg/dL (NEGATIVE) Urine Ketones Negative mg/dL (NEGATIVE) Urine Blood Small (NEGATIVE) Urine Nitrite Negative (NEGATIVE) Urine Bilirubin Negative (NEGATIVE) Urine Urobilinogen Negative mg/dL (0.2-1.9) Urine Leukocyte Esterase Negative (NEGATIVE) Urine RBC 4 /HPF (0-2/HPF) Urine WBC 2 /HPF (0-5/HPF) Urine Squamous Epithelial Cells None /LPF (</=FEW) Urine Bacteria Negative /HPF (NONE-FEW) Urine Mucus Few /HPF (NONE-FEW) EKG/Imaging Imaging Exam type: CHEST PA AND LAT History: swelling in lower extremity Comparison: August 17, 2017. Findings: There is mild hyperinflation of the lung blanchard. There is no evidence of focal infiltrates, pleural effusions or pulmonary edema. The cardiac silhouette is normal in size. The trachea is midline. There are postsurgical changes lower cervical spine. IMPRESSION: 1. Hyperinflation lung blanchard although no evidence of acute pulmonary consolidation Report Dictated By: Catrachita Coley MD at 10/19/2017 3:48 PM Report E-Signed By: Catrachita Coley MD at 10/19/2017 3:49 PM VENOUS DOPP LOW RIGHT EXTREMIT ADDITIONAL PERTINENT HISTORY: Swelling involving the right lower leg.. COMPARISON STUDIES: None. FINDINGS: Grayscale compression, duplex and color Doppler interrogation of the right lower extremity deep veins from common femoral vein to proximal calf was performed. The greater saphenous vein in the ipsilateral proximal thigh was evaluated using similar technique. Right lower extremity: Common femoral vein: Negative. Femoral vein: Negative. Deep femoral vein: Negative. Popliteal vein: Negative. Visualized deep calf veins Negative. Greater saphenous vein in the proximal thigh: Negative. Popliteal fossa: There are noncompressible superficial venous structures with increased echogenicity within the lumen of these vascular structures within the right popliteal fossa which could represent thrombosed varicosities. IMPRESSION: 1. No evidence of deep venous thrombosis involving the right lower extremity. 2. Findings concerning for thrombosed varicosities within the right popliteal fossa. Report Dictated By: Van Rico MD at 10/19/2017 4:20 PM Report E-Signed By: Van Rico MD at 10/19/2017 4:22 PM ED Course/Re-evaluation ED Course Patient was admitted to examined, history and physical were obtained. Differential diagnoses were considered. On examination patient has swelling to the right lower extremity. An ultrasound was done of the right lower leg, CBC, CMP, PT INR. The white count was unremarkable, CMP was unremarkable, INR was normal. The ultrasound showed superficial thrombus. Chest x-ray was negative. I discussed the case with the patient. I informed him of the results. We will go ahead and have him take a full dose aspirin, 325 mg, daily. We will also give him a limited supply of pain medication. He is to limit his activity by pain. He is to continue with normal exercise. He is return to emergency room if condition worsens, including shortness of breath or chest pain. Patient and his verbalized understanding and agreement with plan. Decision to Disposition Date: Oct 19, 2017 Decision to Disposition Time: 16:36 Depart Departure Latest Vital Signs Vital Signs Date Time Temp Pulse Resp B/P (MAP) Pulse Ox O2 Delivery O2 Flow Rate FiO2 10/19/17 16:30 141/122 (128) 10/19/17 16:28 68 10/19/17 16:08 91 10/19/17 14:29 97.9 16 Room Air Impression: Primary Impression: Superficial thrombophlebitis Condition: Improved Disposition: HOME OR SELF-CARE Referrals: CAMERON ESPINOZA MD (PCP) New Scripts Hydrocodone Bit/Acetaminophen (HYDROCODON-ACETAMINOPHEN 5-325) 1 Each Tablet 1 EACH PO Q4-6H Y for PAIN, #12 TAB Prov: CHEYENNE KEITH 10/19/17 Patient Instructions: Superficial Thrombophlebitis (ED) Additional Instructions: Take Aspirin 325mg daily for the next 5-6 weeks. Limit activity by pain. Elevate leg when not active. Continue with normal activity. Return to the ER if condition worsens, you develop chest pain, shortness of breath, worsening swelling etc. Follow up with your primary care provider in the next week. Problem Qualifiers Primary Impression: Superficial thrombophlebitis Superficial thrombophlebitis-Involved body area: lower extremity Laterality: left Qualified Codes: I80.02 - Phlebitis and thrombophlebitis of superficial vessels of left lower extremity CHEYENNE KEITH Oct 19, 2017 15:04
[2017-10-19 15:16] LABS: PLATELET COUNT, AUTOMATED 254 K/uL (150-450)
--- NOTE | 2017-10-19 15:32 | EKG ---
FACILITY: [facility] [place] PATIENT NAME: DARREN BRAVO : [id number] MR: [id number] V: [id number] EXAM DATE: ORDERING PHYSICIAN: CHEYENNE KEITH TECHNOLOGIST: Test Reason : Blood Pressure : / mmHG Vent. Rate : 060 BPM Atrial Rate : 060 BPM P-R Int : 138 ms QRS Dur : 100 ms QT Int : 424 ms P-R-T Axes : 051 043 084 degrees QTc Int : 424 ms Sinus rhythm Possible left atrial enlargement U waves present in precordial leads Confirmed by NILDA MENA ([id number]) on 10/19/2017 3:59:55 PM Referred By: Confirmed By:NILDA MENA
--- NOTE | 2017-10-19 15:55 | RADIOLOGY IMAGING REPORT ---
FACILITY: [facility] [place] PATIENT NAME: Jin Caldwell : 1955 MR: [id number] V: [id number] EXAM DATE: ORDERING PHYSICIAN: CHEYENNE KEITH TECHNOLOGIST: Location: [facility] Patient: Jin Caldwell : 1955 Visit/Account:[id number] Date of Sevice: 10/19/2017 Exam type: CHEST PA AND LAT History: swelling in lower extremity Comparison: August 17, 2017. Findings: There is mild hyperinflation of the lung blanchard. There is no evidence of focal infiltrates, pleural effusions or pulmonary edema. The cardiac silhouette is normal in size. The trachea is midline. Th ere are postsurgical changes lower cervical spine. IMPRESSION: 1. Hyperinflation lung blanchard although no evidence of acute pulmonary consolidation Report Dictated By: Catrachita Coley MD at 10/19/2017 3:48 PM Report E-Signed By: Catrachita Coley MD at 10/19/2017 3:49 PM WSN:[email or web address]
--- NOTE | 2017-10-19 16:27 | RADIOLOGY IMAGING REPORT ---
FACILITY: [facility] PATIENT NAME: Jin Caldwell : 1955 MR: [id number] V: [id number] EXAM DATE: ORDERING PHYSICIAN: CHEYENNE KEITH TECHNOLOGIST: Location: [facility] - [place] Patient: Jin Caldwell : 1955 Visit/Account:[id number] Date of Sevice: 10/19/2017 VENOUS DOPP LOW RIGHT EXTREMIT ADDITIONAL PERTINENT HISTORY: Swelling involving the right lower leg.. COMPARISON STUDIES: None. FINDINGS: Grayscale compression, duplex and color Doppler interrogation of the right lower extremity deep veins from common femoral vein to proximal calf was performed. The greater saphenous vein in the ipsilater al proximal thigh was evaluated using similar technique. Right lower extremity: Common femoral vein: Negative. Femoral vein: Negative. Deep femoral vein: Negative. Popliteal vein: Negative. Visualized deep calf veins Negative. Greater saphenous vein in the proximal thigh: Negative. Popliteal fossa: There are noncompressible superficial venous structures with increased echogenicity within the lumen of these vascular structures within the right popliteal fossa which could represent thrombosed varicosities. IMPRESSION: 1. No evidence of deep venous thrombosis involving the right lower extremity. 2. Findings concerning for thrombosed varicosities within the right popliteal fossa. Report Dictated By: Van Rico MD at 10/19/2017 4:20 PM Report E-Signed By: Van Rico MD at 10/19/2017 4:22 PM WSN:[id number]
[2017-10-19 16:30] VITALS: BP 141/122
[2017-10-19] MEDS ORDERED: HYDR-385 PO (16:33)
[2017-10-21] MEDS ORDERED: APIX5TAB PO (16:18)
[2017-10-21] MEDS ORDERED: HYDR-385 PO (16:18)
== END 2017-10-19 16:52 | disposition home or self-care (01) ==
LOC: ER 14:37
DX: I80.9 Phlebitis and thrombophlebitis of unspecified site (principal); I10 Essential (primary) hypertension
CPT/HCPCS: 71046; 81001; 82040; 82247; 82310; 82374; 82435; 82565; 82947; 84075; 84132; 84155; 84295; 84450; 84460; 84484; 84520; 85025; 85610; 87088; 93005; 99284

== ENCOUNTER → 2017-10-30 | Outpatient (CLI) | payer BC ==
[~2017-10-30] MED LIST changes: +APIX5TAB PO; +CIPR-214 PO; +HYDR-385 PO
[2017-10-30 15:22] LABS: PLATELET COUNT, AUTOMATED 234 K/uL (150-450)
== END ==
LOC: LAB 14:50
PROVIDERS: ATTEND Nurse Practitioner Primary Care
DX: R19.7 Diarrhea, unspecified (principal)
CPT/HCPCS: 36415; 81001; 82040; 82247; 82274; 82310; 82374; 82435; 82565; 82947; 83630; 84075; 84132; 84155; 84295; 84450; 84460; 84520; 85025; 87045; 87324; 87449

== ENCOUNTER → 2017-11-03 | Outpatient (CLI) | payer BC ==
[~2017-11-03] MED LIST changes: +ACET-3017 PO; +DIPH-1 PO; +IOPAMIDOL 76% 75 ML INFUS BTL 75 ML ONE
--- NOTE | 2017-11-03 12:27 | RADIOLOGY IMAGING REPORT ---
FACILITY: [facility] PATIENT NAME: Jin Caldwell : 1955 MR: [id number] V: [id number] EXAM DATE: ORDERING PHYSICIAN: MARY SONI TECHNOLOGIST: Location: [facility] - [place] Patient: Jin Caldwell : 1955 Visit/Account:[id number] Date of Sevice: 11/03/2017 ABDOMEN/PELVIS WITH CONTRAST Additional pertinent History: Right upper quadrant pain TECHNIQUE: Spiral scan was through the abdomen and pelvis during injection of nonionic iodinated in travenous contrast. Contrast: 75 mL of IV Isovue-370. COMPARISON STUDIES: 10/08/2011 One of the following dose optimization techniques was utilized in the performance of this exam: Autom ated exposure control; adjustment of the mA and/or kV according to the patient's size; or use of an i terative reconstruction technique. Specific details can be referenced in the facility's radiology C T exam operational policy. FINDINGS: Liver / biliary: Status post cholecystectomy. Pancreas: negative Spleen: No splenic lesions. Small splenule seen adjacent to the inferior lateral aspect of the splee n. Adrenal glands: negative Kidneys / retroperitoneum: No renal stone. No hydronephrosis or obstructive uropathy change. Multip le small hypoattenuated lesions seen in both kidneys compatible with probable cysts. There is a larg e cyst projecting up into the renal pelvis from the inferior medial aspect of the left kidney measuri ng 3 cm in size. One of the hypoattenuated lesions in the left kidney has Hounsfield units of approx imately 30 (axial image 42 series 2) in this likely represents a proteinaceous or hemorrhagic cyst. Pelvic structures: Enlarged prostate measuring 6 cm. Bowel / peritoneum / mesenteries: Diverticuli without evidence of diverticulitis. Appendix not ident ified but no pericolonic stranding or inflammation to suggest secondary signs of appendicitis. Vessels: negative Musculoskeletal / Body wall: negative Lymph node assessment: negative Lower chest: negative IMPRESSION: 1. Negative CT scan of the abdomen/pelvis for acute pathology. Bilateral renal cysts. Increasing s ize of the cyst projecting from the inferior medial aspect of the left kidney. Cyst within the left kidney which has increased Hounsfield units is overall similar in size and appearance to the study fr om 2011. 2. Status post cholecystectomy. 3. Diverticulosis without evidence of diverticulitis. 4. Enlarged prostate Report Dictated By: Artur Cartwright MD at 11/03/2017 12:05 PM Report E-Signed By: Artur Cartwright MD at 11/03/2017 12:22 PM WSN:[id number]
== END ==
LOC: CT 10:44
PROVIDERS: ATTEND Emergency Medicine
DX: N28.1 Cyst of kidney, acquired (principal); Z90.49 Acquired absence of other specified parts of digestive tract; K57.90 Diverticulosis of intestine, part unspecified, without perforation or abscess without bleeding; N40.0 Benign prostatic hyperplasia without lower urinary tract symptoms
CPT/HCPCS: 74177; Q9967

== ENCOUNTER → 2017-11-12 | Outpatient (CLI) | payer BC ==
[~2017-11-12] MED LIST changes: -IOPAMIDOL 76% 75 ML INFUS BTL 75 ML ONE
== END ==
LOC: LAB 06:54
PROVIDERS: ATTEND Emergency Medicine
DX: R19.7 Diarrhea, unspecified (principal)
CPT/HCPCS: 87177

== ENCOUNTER → 2017-11-13 | Outpatient (CLI) | payer BC | LOC: LAB 08:35 | PROVIDERS: ATTEND Emergency Medicine | DX: R19.7 Diarrhea, unspecified (principal) | CPT/HCPCS: 87177 ==

== ENCOUNTER → 2018-02-25 | Outpatient (CLI) | payer BC ==
[~2018-02-25] MED LIST changes: -TRAZ-156 PO; +TRAZ50TA34 PO
--- NOTE | 2018-02-25 10:50 | RADIOLOGY IMAGING REPORT ---
FACILITY: [facility] PATIENT NAME: Jin Caldwell : 1955 MR: [id number] V: [id number] EXAM DATE: ORDERING PHYSICIAN: DEANGELO ESCOBAR TECHNOLOGIST: Location: [facility] [place] Patient: Jin Caldwell : 1955 Visit/Account:[id number] Date of Sevice: 02/25/2018 GROIN ULTRASOUND INDICATION: Groin pain COMPARISON: CT abdomen and pelvis dated 11/03/2017. FINDINGS: Grayscale and color Doppler ultrasound of the bilateral groin. Questionable small bilateral inguinal hernias, only seen during Valsalva maneuver. Otherwise no suspi cious mass, fluid collection, hematoma, or lymphadenopathy in the areas scanned. IMPRESSION: Questionable small bilateral inguinal hernias, only seen during Valsalva maneuver. No jorge dence of hernia in these locations on the prior CT scan of the abdomen and pelvis dated 11/03/2017. Report Dictated By: Sean Lai MD at 02/25/2018 10:39 AM Report E-Signed By: Sean Lai MD at 02/25/2018 10:46 AM WSN:[id number]
== END ==
LOC: US 09:18
PROVIDERS: ATTEND Physician Assistant
DX: K40.20 Bilateral inguinal hernia, without obstruction or gangrene, not specified as recurrent (principal)
CPT/HCPCS: 76705

== ENCOUNTER → 2018-02-25 | Outpatient (CLI) | payer BC | LOC: LAB 15:36 | PROVIDERS: ATTEND Urology | DX: Z00.00 Encounter for general adult medical examination without abnormal findings (principal); N40.1 Benign prostatic hyperplasia with lower urinary tract symptoms | CPT/HCPCS: 36415; 84153 ==

== ENCOUNTER 2018-03-04 01:58 | Day surgery (SDC) | payer BC ==
[2018-03-02 09:33] LABS: PLATELET COUNT, AUTOMATED 316 K/uL (150-450)
--- NOTE | 2018-03-03 19:11 | HISTORY AND PHYSICAL ---
DATE OF ADMISSION: March 04, 2018 CHIEF COMPLAINT Right inguinal hernia. HISTORY OF PRESENT ILLNESS Patient is a 62-year-old white male with a history of BPH, hematuria, and ED, who presented to the [facility]rology Clinic after having right groin pain for two weeks. He was originally seen at [facility] the day before with a physical exam consistent with a right inguinal hernia. He had a groin ultrasound performed at [facility] on the which revealed questionable small bilateral inguinal hernias only seen during Valsalva. His physical exam in the office revealed a right reducible inguinal hernia and a very questionable small one on the left. He was nontender in that area. Patient states that his symptoms began after working on a porch with heavy lifting and currently increases with sneezing and movement. It improves at night after he is supine. He denies recent change in voiding history. He has no stranguria, no constipation. He does have a chronic cough secondary to smoking. Options were discussed. The patient elected to undergo elective right inguinal hernia repair with possible left exploration and repair as indicated. The specific risks and benefits have been discussed including bleeding, infection, and damage to adjacent structures including nerves, vessels, and bowel. He has also been informed of the risk of recurrence and will be somewhat greater in a patient who is smoking and has a chronic cough. Other options of observation and laparoscopic repair were also discussed. Of note, he did have a CT scan performed in October of this past year which did not show any inguinal hernia on either side. PAST MEDICAL HISTORY * Hypertension. * Hiatal hernia. * Vertigo. * COPD. * Erectile dysfunction. * Borderline hypogonadism. * Cervical spine degenerative joint disease. PAST SURGICAL HISTORY * Cervical spine surgery 1999. * Laparoscopic cholecystectomy 2005. * Colonoscopy. * Left clavicle. * Left bicipital repair. * Cystoscopy with bilateral retrograde pyelograms August 2013. CURRENT MEDICINES * Sheila. * Protonix. * Naproxen. ALLERGIES PENICILLIN. SOCIAL HISTORY Patient is , lives in [place], [place]. He has a long smoking history. FAMILY HISTORY Noncontributory. REVIEW OF SYSTEMS Patient denies current chest pain, shortness of breath, nausea, vomiting, fever , chills, gross hematuria, bleeding disorder, or liver disease. PHYSICAL EXAMINATION GENERAL: Patient is a well-developed, well-nourished, white male in no acute distress. HEENT: Normocephalic, atraumatic. CHEST: Clear to auscultation bilaterally. CARDIOVASCULAR: Regular rate and rhythm. ABDOMEN: Soft, nontender. No masses are palpated. GENITOURINARY: Normal testes descended bilaterally. He has a right direct inguinal hernia which is reducible, somewhat tender. His left side has questionable attenuation of the floor, but no obvious hernia felt. Digital rectal exam is deferred. EXTREMITIES: Without clubbing, cyanosis, or edema. NEUROLOGIC: Nonfocal. IMPRESSION A 62-year-old white male with a three-week history of right inguinal hernia with significant pain and discomfort. PLAN We will perform a right inguinal hernia repair with possible left exploration. [facility]
[~2018-03-04] VITALS: Ht 177.8 cm; Wt 74.8 kg
[2018-03-04 06:05] VITALS: BP 173/103
[2018-03-04] MEDS ORDERED: LIDOCAINE/SOD BICARB 8.4% SYR ID ONE (06:45)
[2018-03-04] MEDS ORDERED: LEVOFLOXACIN/D5W*500 MG/100 ML 100 ML IVPB ONE (06:45)
[2018-03-04] MEDS ORDERED: MIDAZOLAM 2 MG/2 ML VIAL IVP PRN (06:45)
[2018-03-04] MEDS ORDERED: NORMOSOL R SOLN(*) 1000 ML BAG 1,000 ML IV PRN (06:45)
[2018-03-04] MEDS ORDERED: ROPIVACAINE 0.2% 20 ML VIAL ONE ×2 (07:09→09:21)
[2018-03-04] MEDS ORDERED: MIDAZOLAM 2 MG/2 ML VIAL ONE (07:30)
[2018-03-04] MEDS ORDERED: fentaNYL CITR 100 MCG/2 ML AMP ONE ×3 (07:30→09:49)
[2018-03-04] MEDS ORDERED: DEXAMETHASONE SOD PHOS 10MG/ML ONE (07:31)
[2018-03-04] MEDS ORDERED: LIDOCAINE MPF 1% 5 ML VIAL ONE (07:31)
[2018-03-04] MEDS ORDERED: ONDANSETRON 4 MG/2 ML VIAL ONE (07:31)
[2018-03-04] MEDS ORDERED: PROPOFOL EMUL(*) 10MG/ML 20 ML 20 ML ONE (07:31)
[2018-03-04] MEDS ORDERED: LIDOCAINE 2% JELLY 5 ML TUBE ONE (07:35)
[2018-03-04] MEDS ORDERED: GENTAMICIN(*) 80 MG/2 ML VIAL 60 MG in NS 0.9% IRRIGATION 500 ML PLCT 500 ML IR SCH (07:45)
[2018-03-04] MEDS ORDERED: hydrALAZINE HCL 20 MG/ML VIAL ONE (08:36)
[2018-03-04] MEDS ORDERED: KETOROLAC 30 MG/ML VIAL ONE (09:21)
[2018-03-04] MEDS ORDERED: APAP/HYDROCODONE 325/5 TAB ONE (10:20)
[2018-03-04] MEDS ORDERED: HYDR-385 PO (10:24)
[2018-03-04] MEDS ORDERED: DOCU-416 PO (10:26)
[2018-03-04] MEDS ORDERED: IBUP600T22 PO (10:30)
[2018-03-04 10:38] VITALS: BP 133/82
[2018-03-04 11:02] VITALS: BP 129/83
[2018-03-04 11:07] VITALS: BP 120/99
--- NOTE | 2018-03-04 14:52 | OPERATIVE REPORT 1 ---
EVENT DATE: March 04, 2018 SURGEON: Rustam Goff MD ANESTHESIOLOGIST: Benny Mojica MD ANESTHESIA: General anesthetic. PREOPERATIVE DIAGNOSIS Right inguinal hernia. POSTOPERATIVE DIAGNOSIS Right direct and indirect inguinal hernias. PROCEDURES PERFORMED 1. Right indirect hernia repair by high ligation of sac. 2. Right direct hernia repair by mesh repair using Candice technique. ESTIMATED BLOOD LOSS 10 mL INTRAVENOUS FLUIDS Crystalloids. DRAINS None. COMPLICATIONS None. CONDITION Stable to recovery room. STATEMENT OF MEDICAL NECESSITY Patient is a 62-year-old white male who approximately three weeks ago was doing some physical activity and noted a sudden onset of right lower quadrant pain. He was evaluated at [facility] and felt to have a possible hernia. On physical exam, this was confirmed by ultrasound. Physical exam in the [facility]rology Clinic revealed a right reducible inguinal hernia which was moderately tender. He had a questionable left which was causing no discomfort. Options were discussed. He would like to undergo a repair. Specific risks and benefits have been explained including bleeding, infection, damage to adjacent structures including bowel, vessels, nerves, possible recurrence, postoperative paresthesias and/or neuralgia. Operative consent is signed and on the chart. DESCRIPTION OF OPERATION PERFORMED Patient was brought to the operating room. After general anesthetic was obtained, he was placed supine on the operating room table and prepped and draped in the usual sterile manner. A 4 cm right lower quadrant skin incision was made along the lines of Langerhans from just over the external ring out superolaterally for 4 cm with the 15 blade knife. This was taken down through the subcutaneous tissue with electrocautery. The aponeurosis of the external oblique was encountered. This was then incised parallel with its fibers to expose the inguinal contents. The ilioinguinal nerve was identified and retracted superomedially. Cord was isolated at the pubic tubercle with a Chatham drain. The area was inspected. He was noted to have a moderate indirect hernia sac on the superomedial aspect of the cord as well as to have a defect in the floor consistent with a direct component. At this portion, the cremasteric fibers were removed from the cord down to the internal ring. The sac was isolated from the vas and vessels and also dissected down to the internal ring. It was then opened on its distal end and the internal contents inspected. There were no intra-abdominal contents noted. The sac was then twisted down upon itself and doubly cross-clamped with right-angle clamps. The redundant sac was removed sharply, and the end was double-suture ligature tied with 0 silk. After release of the clamps, the sutures retracted nicely into the internal ring. At this point, attention was directed toward the indirect component. A piece of 2 x 4 mesh was opened and its medial aspect cut to a slightly curved position. The lateral aspect was incised for approximately 1.5 cm to accommodate the cord. The mesh was then secured in place with interrupted running 2-0 PDS starting at the pubic tubercle and proceeding around inferolaterally on the inguinal ligament and then superomedially along the transversalis fascia. The cut end was placed around the cord at the internal ring and distal aspects sutured together. At this point, copious amounts of antibiotic solution were used to irrigate the wound. The cord and nerve were placed back in their normal anatomical position. The aponeurosis of the external oblique was closed with a running 2-0 Vicryl. Ropivacaine 0.25% was given along the cord and skin edge. The subcutaneous tissues were reapproximated with interrupted 3-0 chromic. The skin was closed with a running 4-0 Vicryl subcuticular stitch. Skin adhesive was placed along the skin edge. A sterile dressing was placed on the incision. A fluff dressing and scrotal support were placed on the patient in the operating room. He was awakened in the operating room and taken to the recovery area in stable condition. PLAN The plan will be to allow the patient to be discharged home later today. He is given a prescription for Wellington, Colace, and Motrin, and instructed to use the scrotal support and ice for the next 36 hours. Will plan to see him in the Urology Clinic again in four to six weeks. YAIR
== END 2018-03-04 10:38 | disposition home or self-care (01) ==
LOC: OR 01:58
PROVIDERS: ATTEND Urology
DX: K40.90 Unilateral inguinal hernia, without obstruction or gangrene, not specified as recurrent (principal); I10 Essential (primary) hypertension; J44.9 Chronic obstructive pulmonary disease, unspecified; N52.9 Male erectile dysfunction, unspecified
CPT/HCPCS: 36415; 49505; 81001; 85025; 87088; J0360; J1100; J1885; J1956; J2001; J2250; J2405; J2704; J2795; J3010; 82040; 82247; 82310; 82374; 82435; 82565; 82947; 84075; 84132; 84155; 84295; 84450; 84460; 84520

== ENCOUNTER → 2019-01-14 | Outpatient (CLI) | payer BC ==
[~2019-01-14] MED LIST changes: +IBUP600T22 PO; +IOPAMIDOL 76% 150 ML INFUS BTL 150 ML ONE; -TRAZ50TA34 PO; +TRAZ50TA52 PO
--- NOTE | 2019-01-14 11:08 | RADIOLOGY IMAGING REPORT ---
[place] [facility] [place] NAME: Jin Caldwell : 1955 MR: [id number] V: [id number] EXAM DATE: ORDERING PHYSICIAN: LUZ MARIA CONNER TECHNOLOGIST: Location: [facility] - [place], [place] Patient: Jin Caldwell : 1955 Visit/Account:[id number] Date of Sevice: 01/14/2019 Study: CT scan of the brain without and with intravenous contrast. Contrast: 80ml isovue 370 Indication: Migraine headache with aura Comparison study:None Technique: Multiple axial images were obtained through the brain without and with the use of intraven ous contrast. One of the following dose optimization techniques was utilized in the performance of this exam: Autom ated exposure control; adjustment of the mA and/or kV according to the patient's size; or use of an i terative reconstruction technique. Specific details can be referenced in the facility's radiology C T exam operational policy. The examination demonstrates no evidence of acute intracranial hemorrhage. There is no evidence of ex tra-axial collection or hydrocephalus. There is no abnormal density identified within the brain parenchyma. There is no evidence of disruption of the peripheral antoine-white junction. There is no abnormal contrast enhancement identified. The bony structures are unremarkable. IMPRESSION:Unremarkable CT scan of the brain without and with contrast. Report Dictated By: German Shoemaker at 01/14/2019 10:50 AM Report E-Signed By: German Shoemaker at 01/14/2019 11:03 AM WSN:[id number]
== END ==
LOC: CT 01:00
PROVIDERS: ATTEND Nurse Practitioner
DX: G43.109 Migraine with aura, not intractable, without status migrainosus (principal)
CPT/HCPCS: 36415; 70470; 82565; Q9967